=== PATIENT | female | born 1990 | race Caucasian/White ===

== ENCOUNTER 2018-11-25 09:11 | Emergency (ER) | payer BC, OTHER ==
[2018-11-25] MEDS ORDERED: ACET/COD 300 MG/30 MG STARTER PACK 6 TAB BTL PO STA (09:37)
--- NOTE | 2018-11-25 09:40 | ED ---
ENT HPI - General Chief complaint: Dental/Oral Stated complaint: LEFT HEAD/EAR PAIN Time Seen by Provider: 11/25/18 09:26 Source: patient, RN notes reviewed Mode of arrival: ambulatory Limitations: no limitations - History of Present Illness Initial comments: 28-year-old female presents emergency Department with chief complaint of dental pain. Patient states there was an teeth have come in states that now cracked her teeth the front. Patient states that there is some swelling. Patient states the Tylenol, Motrin is not helping. Patient states that she has not contacted a dentist. Patient reports no fevers or chills. Patient denies any trismus, nuchal to swallowing, headache, dizziness - Related Data Home Medications Medication Instructions Recorded Confirmed Acetaminophen Tab [Tylenol Tab] 325 mg PO Q4H PRN 11/25/18 11/25/18 Ibuprofen [Motrin Ib] 800 mg PO Q6H PRN 11/25/18 11/25/18 Previous Rx's Medication Instructions Recorded Ibuprofen [Motrin] 600 mg PO Q8HR PRN #30 tab 11/25/18 Penicillin V Potassium [Pen Vee K] 500 mg PO QID #40 tablet 11/25/18 Allergies Allergy/AdvReac Type Severity Reaction Status Date / Time No Known Allergies Allergy Verified 11/25/18 09:35 Review of Systems ROS Statement: Those systems with pertinent positive or pertinent negative responses have been documented in the HPI. ROS Other: All systems not noted in ROS Statement are negative. Past Medical History Past Medical History: No Reported History History of Any Multi-Drug Resistant Organisms: None Reported Past Surgical History: No Surgical Hx Reported Past Psychological History: No Psychological Hx Reported Smoking Status: Current every day smoker Past Alcohol Use History: Occasional Past Drug Use History: None Reported General Exam Limitations: no limitations General appearance: alert, in no apparent distress Head exam: Present: atraumatic, normocephalic, normal inspection Eye exam: Present: normal appearance, PERRL, EOMI. Absent: scleral icterus, conjunctival injection, periorbital swelling ENT exam: Present: mucous membranes moist, TM's normal bilaterally, normal external ear exam. Absent: normal oropharynx (Dental fracture, dental caries, no drainable abscess mild erythema) Neck exam: Present: normal inspection, full ROM. Absent: tenderness, meningismus, lymphadenopathy Respiratory exam: Present: normal lung sounds bilaterally. Absent: respiratory distress, wheezes, rales, rhonchi, stridor Cardiovascular Exam: Present: regular rate, normal rhythm, normal heart sounds. Absent: systolic murmur, diastolic murmur, rubs, gallop, clicks Course Vital Signs 11/25/18 09:13 Temperature 98.3 F Pulse Rate 70 Respiratory 18 Rate Blood Pressure 130/84 O2 Sat by Pulse 99 Oximetry Medical Decision Making - Medical Decision Making 28 show female presented for dental pain. Patient has multiple dental fractures and dental caries. Patient has no obvious abscess though concern for Dental infection. Patient was started on penicillin, anti-inflammatories and given a starter pack without codeine. Return parameters were discussed. Patient be followed up with oral surgery Disposition Clinical Impression: Fracture of tooth, Dental caries, Toothache Disposition: HOME SELF-CARE Condition: Stable Instructions (If sedation given, give patient instructions): Toothache (ED) Additional Instructions: Please return to the Emergency Department if symptoms worsen or any other concerns. Prescriptions: Ibuprofen [Motrin] 600 mg PO Q8HR PRN #30 tab PRN Reason: Pain Penicillin V Potassium [Pen Vee K] 500 mg PO QID #40 tablet Is patient prescribed a controlled substance at d/c from ED?: No Referrals: Yfn Llamas DDS [STAFF PHYSICIAN] - 1-2 days Time of Disposition: 09:40
[2018-11-25 09:59] VITALS: BP 122/93; PULSE 81; RESP 16; TEMP 98.7
== END 2018-11-25 10:00 | disposition home or self-care (01) ==
LOC: EC 09:11
DX: S02.5XXA Fracture of tooth (traumatic), initial encounter for closed fracture (principal); K02.9 Dental caries, unspecified; F17.200 Nicotine dependence, unspecified, uncomplicated; X58.XXXA Exposure to other specified factors, initial encounter
CPT/HCPCS: 99282